=== PATIENT | male | born 1980 | race Two or more races ===

== ENCOUNTER 2022-04-17 12:05 | Emergency (ER) | payer OTHER ==
[~2022-04-17] VITALS: Ht 180.3 cm; Wt 79.4 kg
[2022-04-17] MEDS ORDERED: PROTONIX20 MG PO (12:17)
== END 2022-04-17 14:26 | disposition home or self-care (01) ==
LOC: ER 12:05
DX: R07.89 Other chest pain (principal)

== ENCOUNTER 2022-06-02 16:46 | Emergency (ER) | payer OTHER ==
[~2022-06-02] VITALS: Ht 172.7 cm; Wt 72.6 kg
[~2022-06-02 16:46] MED LIST: PROTONIX20 MG PO
== END 2022-06-03 01:43 | disposition home or self-care (01) ==
LOC: ER 16:46
DX: R07.9 Chest pain, unspecified (principal); K21.9 Gastro-esophageal reflux disease without esophagitis